=== PATIENT | male | born 1975 | race Caucasian/White ===

== ENCOUNTER 2023-06-21 08:38 | Emergency (ER) | payer BC, SELFPAY ==
--- NOTE | ~2023-06-21 | CT_ITS ---
EXAMINATION: CT lumbar spine wo con DATE: 06/21/2023 11:09 INDICATION: Right-sided low back pain. TECHNIQUE: Computed tomography (CT) of the lumbar spine was performed without intravenous contrast. A utomated exposure control and iterative reconstruction technique were employed. The dose-length produ ct was 886.40 mGy-cm. COMPARISON: None FINDINGS: There is 4 degrees levocurvature of lumbar spine. There is 2 mm retrolisthesis of L1 on L2. Vertebral body heights are normal. There is moderately decreased disc height at L1-L2 and mildly dec reased disc height at L3-L4. The following disc levels are specifically discussed: L1-L2: The disc is bulging. There is mild right and moderate left facet joint osteoarthritis. There i s moderate right and mild left neural foraminal stenosis. There is mild central canal stenosis. L2-L3: The disc is bulging. There is moderate bilateral facet joint osteoarthritis. There is mild mina ateral neural foraminal stenosis. There is mild central canal stenosis. L3-L4: The disc is bulging. There is mild bilateral facet joint osteoarthritis. There is mild bilater al neural foraminal stenosis. There is mild central canal stenosis. L4-L5: The disc is bulging. There is mild right and moderate left facet joint osteoarthritis. There i s mild bilateral neural foraminal stenosis. There is mild central canal stenosis. L5-S1: The disc does not extend beyond the endplate margin. There is severe bilateral facet joint ost eoarthritis. There is mild bilateral neural foraminal stenosis. There is no central canal stenosis. IMPRESSION: 1. Moderate lumbar spondylosis. Reviewed, dictated and finalized at location E. [facility] [employer]
[2023-06-21 08:48] VITALS: BP 146/82; PULSE 79; RESP 16; TEMP 36.5; O2SAT 98
--- NOTE | 2023-06-21 10:45 | ED.BACK ---
HPI - Back Pain/Injury General Chief Complaint: Back Pain/Injury Stated Complaint: back injury Time Seen by Provider: 06/21/23 10:11 Source: patient Mode of arrival: ambulatory Limitations: no limitations History of Present Illness HPI Narrative: This is a 47-year-old male that presents to the emergency department for low back pain ongoing since yesterday. Reports he was squatting and feels like he leaned forward a little too far. Since he has had right-sided low back pain. Worse with movement and relieved with rest. He has taken ibuprofen with little relief. Denies saddle anesthesia, bowel/ bladder incontinence. Related Data Allergies Allergy/AdvReac Type Severity Reaction Status Date / Time azithromycin Allergy Unknown Verified 10/08/10 09:07 Review of Systems Review of Systems: CONSTITUTIONAL: Denies fever MUSCULOSKELETAL: Reports back pain, joint pain, and myalgia. NEUROLOGIC: Denies numbness, or weakness. All systems reviewed & are unremarkable except as noted in HPI and below PMFSH Past Medical History Medical History (Updated 06/21/23 @ 11:31 by Lyric Rm PA-C) No active medical problems Family History Family History (Updated 02/20/14 @ 07:13 by DOCTOR UNKNOWN) Father Family history of elevated blood lipids Sibling Family history of pancreatic disease Other Family history of cardiovascular disease Social History Social History (Updated 06/21/23 @ 10:47 by Lyric Rm PA-C) Alcohol intake: current Substance use: never Exam Narrative: GENERAL: Well-appearing, well-nourished, and in no acute distress. HEAD: Normocephalic, atraumatic. EYES: EOMI. CHEST: Clear to auscultation. No respiratory distress. No wheezes rales or rhonchi HEART: Regular rate and rhythm. No murmur heard. Normal peripheral pulses. BACK: No midline spinal tenderness EXTREMITIES: Normal range of motion. No edema. Strength equal in bilateral lower extremities (5/5) SKIN: Warm, dry, no rash. NEURO: No focal deficits. Alert and oriented x3. Normal gait PSYCH: Normal mood and affect Course Course Emergency Course: Patient updated on workup and agrees with plan of care Vital Signs Vital signs: Vital Signs Temperature 97.7 F 06/21/23 08:48 Pulse Rate 79 06/21/23 08:48 Respiratory Rate 16 06/21/23 08:48 Blood Pressure 146/82 H 06/21/23 08:48 Pulse Oximetry 98 06/21/23 08:48 Oxygen Delivery Room Air 06/21/23 08:48 Temperature 97.7 F 06/21/23 08:48 Pulse Rate 79 06/21/23 08:48 Respiratory Rate 16 06/21/23 08:48 Blood Pressure 146/82 H 06/21/23 08:48 Pulse Oximetry 98 06/21/23 08:48 Oxygen Delivery Room Air 06/21/23 08:48 MDM - Back Pain/Injury MDM Narrative Medical decision making narrative: Patient presents to the emergency department after a lifting injury yesterday with right-sided low back pain. Patient is neurologically intact. Denies saddle anesthesia or bowel/bladder incontinence. He is afebrile and nontoxic appearing. CT lumbar spine shows moderate lumbar spondylosis. Patient instructed on further care of muscle strain. He is to follow up with primary care provider. He was given warnings to return to the ER Differential Diagnosis Differential diagnosis: Likely lumbar radiculopathy and strain of lumbar region Imaging Data Radiologist's impression: ITS Impressions Lumbar Spine CT 06/21/23 11:16 IMPRESSION: 1. Moderate lumbar spondylosis. Critical Care Time Critical Care Time Critical Care Time: No Discharge Plan Discharge Clinical Impression: Low back pain Qualifiers: Chronicity: acute Back pain laterality: right Sciatica presence: without sciatica Qualified Code(s): M54.50 - Low back pain, unspecified Patient Disposition: Home, Self-Care Condition: Stable Instructions: Back Pain (ED) Additional Instructions: Return to the ER if you experience weakness, numbness, bowel/bladder incontinence,
[2023-06-21] MEDS: ACETAMINOPHEN 500 MG TABLET 1000 MG PO (11:45)
[2023-06-21] MEDS: KETOROLAC 30 MG/ML VIAL (*BKC) IM (11:46)
== END 2023-06-21 11:48 | disposition home or self-care (01) ==
PROVIDERS: Emergency Provider Physician Assistant
DX: M54.50 Low back pain, unspecified (principal)
CPT/HCPCS: 72131; 96372; 99284; A9270; J1885